=== PATIENT | male | born 1995 | race Two or more races ===

== ENCOUNTER 2023-04-01 16:06 | Emergency (ER) | payer SELFPAY ==
[~2023-04-01] VITALS: Ht 160 cm; Wt 63.6 kg
[2023-04-01 16:07] VITALS: TEMP 98.5
[2023-04-01] MEDS ORDERED: TraMADol HCL 50 MG TABLET PO ONE (17:30)
[2023-04-01] MEDS ORDERED: LIDOCAINE 1% 10 ML VIAL SQ ONE (18:15)
[2023-04-01 19:10] VITALS: BP 122/72; PULSE 68; RESP 17
[2023-04-01] MEDS ORDERED: TRAM-559 PO (19:18)
== END 2023-04-01 19:27 | disposition home or self-care (01) ==
LOC: EMS 16:06
DX: S01.01XA Laceration without foreign body of scalp, initial encounter (principal); Z88.2 Allergy status to sulfonamides; X58.XXXA Exposure to other specified factors, initial encounter; Y93.89 Activity, other specified; Y92.89 Other specified places as the place of occurrence of the external cause; Y99.8 Other external cause status
CPT/HCPCS: 99284; 70450; 72125; 12002; J3490